=== PATIENT | male | born 1955 ===

== ENCOUNTER 2017-08-15 07:10 | Day surgery (SDC) | payer OTHER ==
[2017-08-15] MEDS ORDERED: Lactated Ringer's 1,000 ML IV ONE (07:50)
[2017-08-15] MEDS ORDERED: Midazolam 2 MG/2 ML VIAL ONE (08:03)
[2017-08-15] MEDS ORDERED: Propofol 10 mg/ml Inj (20 ML) ONE (08:03)
[2017-08-15 09:31] VITALS: RESP 14
[2017-08-15 09:56] VITALS: BP 98/55; PULSE 76; TEMP 98.2; O2SAT 100
== END 2017-08-15 09:58 | disposition home or self-care (01) ==
LOC: H.ENDO 07:10
PROVIDERS: ATTEND Internal Medicine Gastroenterology
DX: K30 Functional dyspepsia (principal); J20.9 Acute bronchitis, unspecified; K21.9 Gastro-esophageal reflux disease without esophagitis; K31.9 Disease of stomach and duodenum, unspecified; K44.9 Diaphragmatic hernia without obstruction or gangrene; K29.50 Unspecified chronic gastritis without bleeding
CPT/HCPCS: 43239; 88305; J2250; J2704; J7120